=== PATIENT | female | born 1970 | race Caucasian/White ===

== ENCOUNTER → 2023-12-14 10:44 | Outpatient (REF) | payer OTHER, SELFPAY | LOC: WDC 10:44 | PROVIDERS: ATTENDING PHYSICIAN Obstetrics & Gynecology Gynecology; FAMILY PHYSICIAN Family Medicine | DX: Z12.31 Encounter for screening mammogram for malignant neoplasm of breast (principal) | CPT/HCPCS: 77063; 77067 ==

== ENCOUNTER → 2024-12-22 08:56 | Outpatient (REF) | payer OTHER, SELFPAY | LOC: WDC 08:56 | PROVIDERS: ATTENDING PHYSICIAN Obstetrics & Gynecology Gynecology; FAMILY PHYSICIAN Family Medicine | DX: Z12.31 Encounter for screening mammogram for malignant neoplasm of breast (principal) | CPT/HCPCS: 77063; 77067 ==

== ENCOUNTER 2025-06-20 15:15 | Emergency (ER) | payer OTHER, SELFPAY ==
[2025-06-20 15:22] VITALS: BP 142/75
--- NOTE | 2025-06-20 16:20 | ED.GENMED ---
History of Present Illness
General
Chief Complaint: DVT/Possible Blood Clot
Time Seen by Provider: 06/20/25 15:31
Nursing documentation reviewed up to this point in time: agreed with
History of Present Illness
History of Present Illness:
55-year-old female presents to the ER for evaluation of right knee discomfort which she describes as a feeling of stiffness and an inability to bend her knee worsening over the past month. Patient does have an appointment to see her orthopedic
specialist on Sunday but was concerned due to upcoming planned travel to [place] this week. She has a prior history of DVT. She is not on any anticoagulation. She reports feeling otherwise well. No fevers. No direct injury or trauma. She did
have ACL repair in this knee in the past. She has been occasionally using Naprosyn without significant improvement.
Past History
Past History
ED Past Medical History: Other (Chronic cough of unknown etiology )
ED Past Surgical History: None
Social History
Tobacco: Non-smoker
Personal:
Living: with family
Review of Systems
Review of Systems
Allergies reviewed?: Yes
Phy Exam
Physical Exam
Physical Exam:
Patient is awake, alert, appears no acute distress, mucous membranes moist, conjunctiva pink, pelvis is stable to rock, no pain on palpation bilateral hips, bilateral knees are examined, right knee without joint effusion, excessive warmth, or
ligamentous laxity on strength testing in comparison to normal left knee, moderate pain on palpation posterior popliteal fossa, 2+ DP pulses present symmetric bilateral feet, GCS is 15
Course
Orders/Labs/Results
Orders:
Orders
06/20/25 15:25
Periph Venous Lwr Ext Rt US [US Periph Venous LOWER Ext RT] Urgent
Comment:
Reason For Exam: calf pain
I reviewed ultrasound result-no evidence for DVT. Labs are considered but not ordered given overall benign appearance of patient and low clinical suspicion for infection
Vital Signs
Initial and Last Documented VS:
Initial Vital Signs
Temp Pulse Resp BP Pulse Ox
98.4 F 68 18 142/75 99
06/20/25 15:22 06/20/25 15:22 06/20/25 15:22 06/20/25 15:22 06/20/25 15:22
Last Documented Vital Signs
Temp Pulse Resp BP Pulse Ox
98.4 F 68 18 142/75 99
06/20/25 15:22 06/20/25 15:22 06/20/25 15:22 06/20/25 15:22 06/20/25 15:22
MDM/Problems Addressed
Differential Diagnosis Includes:
Differential diagnosis to consider but not limited to DVT, arthritis, meniscal tear, sprain, strain, fracture along with other etiologies considered
Chronic conditions affecting care:
Prior ACL repair, history of DVT
*Radiology
Radiology exam reviewed: radiology read reviewed
*Pulse Oximetry
SaO2: 99
Oxygen Mode of Delivery: Room air
Patient hypoxic: no
*Critical Care Note
Total Time (30-74mins, 75-104mins- exclusive of procedures): Not Applicable
Update Note
Update Note:
I discussed with patient very reassuring ultrasound. I discussed with patient clinical history including prior history and physical exam most consistent with likely ongoing degenerative change status post ACL repair. Given physical exam I have no
clinical concern for infection as etiology of symptoms, more likely chronic meniscal injury. I discussed with patient use of high-dose ibuprofen and a compressive sleeve for warmth and to help improve mobility until she is able to be seen by
call center specialist on Sunday. We discussed use of high-dose NSAIDs, ice, elevation. Patient feels comfortable with this plan. We discussed possible x-ray of the knee, however given this would not likely reveal acute worrisome process that
would change today's treatment recommendations, patient would agree with plan to follow-up with her orthopedic surgeon where this will be performed at her visit. She expressed understanding of discharge plan and has no questions at the current time.
ED Attending Note
-
Portions of this chart may have been created with voice recognition software.� Occasional wrong word or��sound alike� substitutions may have occurred due to the inherent limitations of voice recognition software.
Discharge Plan
Departure
Patient Disposition: Home (Routine Discharge)
Date of Disposition: 06/20/25
Time of Disposition: 16:15
Patient with high blood pressure during this ER visit?: No
Discharge Problem:
Arthralgia of knee, right
Instructions: Knee pain - ED discharge instructions
Prescriptions:
New
ibuprofen 600 mg tablet
600 mg PO TID PRN (Reason: Pain) Qty: 30 0RF
No Action
ibuprofen 800 MG tablet
600 mg PO Q6H
Referrals:
Obdulio Preston MD [Active, Orthopedics] - Keep scheduled appt
Mariely Burgos MD [Family Provider, Family Practice]
Activity Restrictions/Additional Instructions:
Please use ibuprofen as prescribed 3 times daily for the next 3 days then as needed for pain and swelling. You may add Tylenol as available [id number] as needed for additional pain relief. When you are not walking please elevate your knee
and apply ice for 20 minutes 3-4 times throughout the day to help with discomfort. Please purchase a supportive knee sleeve at the pharmacy to help with comfort until you are seen in follow-up with your call center specialist on Sunday as scheduled.
Return to the ER for any concerns
Interventions
Interventions:
*Risk Screen - Suicide Last Done: 06/20/25 15:22
*General Assessment Last Done: 06/20/25 15:22
Discharge Date and Time
Print Language: MACEDONIAN
[2025-06-20 16:25] VITALS: BP 137/71
== END 2025-06-20 16:28 | disposition home or self-care (01) ==
LOC: EMR 15:15
PROVIDERS: EMERGENCY PHYSICIAN Emergency Medicine; FAMILY PHYSICIAN Family Medicine
DX: M25.561 Pain in right knee (principal); M79.661 Pain in right lower leg; Z86.718 Personal history of other venous thrombosis and embolism
CPT/HCPCS: 99284; 93971